=== PATIENT | male | born 1960 | race Caucasian/White ===

== ENCOUNTER 2018-03-25 15:21 | Emergency (ER) | payer SELFPAY | END 2018-03-25 17:28 | disposition left against medical advice (07) | LOC: E/R 17:28 | DX: Z53.21 Procedure and treatment not carried out due to patient leaving prior to being seen by health care provider (principal) | CPT/HCPCS: 93005 ==

== ENCOUNTER 2018-06-23 07:30 | Day surgery (SDC) | payer OTHER ==
[2018-06-23 08:07] LABS: ADD MAN DIFF? NO
[2018-06-23 08:10] LABS: WHITE BLOOD COUNT 10.5 10^3/ul (4.8-10.8)
[2018-06-23 08:10] LABS: BASOPHIL # 0.1 10^3/ul (0.0-0.1); BASOPHILS % 0.7 % (0.0-2.0); EOSINOPHILS # 0.2 10^3/ul (0.0-0.5); EOSINOPHILS % 1.6 % (0.0-7.0); HEMATOCRIT 50.1 % (42.0-52.0); HEMOGLOBIN 16.6 g/dl (14.0-18.0); LYMPHOCYTES # 2.8 10^3/ul (0.8-2.9); LYMPHOCYTES % 26.1 % (15.0-51.0); MEAN CORPUSCULAR HGB CONC 33.1 g/dl (32.0-37.0); MEAN CORPUSCULAR VOLUME 84.6 fl (82.0-101.0); MEAN PLATELET VOLUME 12.4 fl (7.4-10.4); MONOCYTE # 0.6 10^3/ul (0.3-0.9); MONOCYTES % 5.7 % (0.0-11.0); NEUTROPHIL # 6.9 10^3/ul (1.6-7.5); NEUTROPHILS % 65.3 % (39.0-77.0); PLATELET COUNT 156 10^3/UL (140-415); RED BLOOD COUNT 5.92 10^6/ul (4.70-6.10); RED CELL DISTRIBUTION WIDTH 14.1 % (11.5-14.5)
[2018-06-23 08:30] LABS: PROTIME 12.3 Sec (11.9-14.9)
[2018-06-23] MEDS ORDERED: IODIXANOL LOCM 100 ML BTL ×4 (08:30→10:27)
[2018-06-23] MEDS ORDERED: LIDOCAINE 1% (MDV) 20 ML INJ (08:30)
[2018-06-23] MEDS: SOD CHLORIDE 0.9% 1,000 ML IV ×2 (08:30→11:09)
[2018-06-23] MEDS ORDERED: MIDAZOLAM 1 MG/ML 2 ML INJ (08:30)
[2018-06-23 08:31] LABS: PARTIAL THROMBOPLASTIN TIME 31.3 Sec (23.0-35.0)
[2018-06-23] MEDS ORDERED: FENTAnyl 50 MCG/ML VIAL (08:31)
[2018-06-23 08:35] LABS: ANION GAP 12 (5-13); BLOOD UREA NITROGEN 12 mg/dl (7-20); CALCIUM 9.8 mg/dl (8.4-10.2); CARBON DIOXIDE 27 mmol/L (21-31); CHLORIDE 104 mmol/L (97-110); CREATININE 0.79 mg/dl (0.61-1.24); Estimated GFR > 60 mL/min (>60); GLUCOSE 168 mg/dl (70-220); POTASSIUM 4.2 mmol/L (3.5-5.1); SODIUM 143 mmol/L (135-144)
[2018-06-23] MEDS ORDERED: CLOPIDOGREL 300 MG TAB (09:52)
[2018-06-23] MEDS ORDERED: ASPIRIN 325 MG TAB (09:52)
[2018-06-23] MEDS ORDERED: NITROGLYCERIN (IC) 100 MCG/ML INJ (09:55)
[2018-06-23] MEDS ORDERED: HEPARIN 1000 UNITS/ML 10 ML INJ (10:09)
[2018-06-23] MEDS ORDERED: BIVALIRUDIN 250MG /NS 50 ML 50 ML IVPB (10:09)
[2018-06-23] MEDS ORDERED: IODIXANOL LOCM 50 ML BTL (10:10)
[2018-06-23] MEDS ORDERED: IOHEXOL 350MG/ML 50 ML BTL (10:26)
[2018-06-23] MEDS ORDERED: ONDANSETRON 4 MG INJ IV (11:00)
[2018-06-23] MEDS ORDERED: OXYCODONE/ACETAMINOPHEN (5/325) TAB PO (11:00)
[2018-06-23] MEDS ORDERED: ACETAMINOPHEN 325 MG TAB PO (11:00)
[2018-06-23] MEDS ORDERED: AL HYDROX/MG HYDROX/SIMETH 30 ML CUP PO (11:00)
[2018-06-24] MEDS ORDERED: CLOPIDOGREL 75 MG TAB PO (09:00)
[2018-06-24] MEDS ORDERED: ASPIRIN (EC) 81 MG TAB PO (09:00)
== END 2018-06-23 19:00 | disposition home or self-care (01) ==
LOC: SDS 07:30 → ICU 11:40 → SDS 19:00
DX: I25.110 Atherosclerotic heart disease of native coronary artery with unstable angina pectoris (principal); R94.39 Abnormal result of other cardiovascular function study
CPT/HCPCS: 80048; 82962; 85025; 85610; 85730; 93005; 93459